=== PATIENT | female | born 1990 ===

== ENCOUNTER 2018-06-15 13:18 | Emergency (ER) | payer MEDICAID ==
[2018-06-15 13:31] VITALS: TEMP 98.8
[2018-06-15 15:02] LABS: HCG,QUALITATIVE URINE NEGATIVE (NEGATIVE)
[2018-06-15 15:26] LABS: SQUAMOUS EPITHIAL 5 /hpf (0-5); URINE BACTERIA MOD (<OCC); URINE BILIRUBIN NEGATIVE (NEGATIVE); URINE BLOOD NEGATIVE (NEGATIVE); URINE CLARITY Hazy (Clear); URINE COLOR Yellow (YELLOW); URINE GLUCOSE (UA) NORMAL (Normal); URINE LEUKOCYTE ESTERASE 1+ Leu/uL (Negative); URINE PROTEIN NEGATIVE (NEGATIVE); URINE UROBILINOGEN NORMAL mg/dL (0.2-1.0)
[2018-06-15 15:58] LABS: BASO # 0.1 K/uL (0.0-0.2); BASO % 0.4 % (0.0-2.0); EOS # 0.2 K/uL (0.0-0.7); EOS % 1.3 % (0.0-4.0); LYMPH # 2.9 K/uL (1.0-4.3); LYMPH % 25.2 % (20.0-40.0); MEAN CELL VOLUME 84.3 fL (81.0-99.0); MEAN CORPUSCULAR HEMOGLOBIN 28.2 pg (27.0-31.0); MEAN CORPUSCULAR HGB CONC 33.4 g/dL (33.0-37.0); MEAN PLATELET VOLUME 9.1 fL (7.2-11.7); MONO # 0.8 K/uL (0.0-0.8); MONO % 7.2 % (0.0-10.0); NEUT # 7.7 K/uL (1.8-7.0); NEUT % 65.9 % (50.0-75.0); RBC 4.98 Mil/uL (3.80-5.20); RED CELL DISTRIBUTION WIDTH 14.2 % (11.5-14.5); WHITE BLOOD COUNT 11.7 K/uL (4.8-10.8)
--- NOTE | 2018-06-15 16:05 | C.PDOC ---
History Of Present Illness <Tessy Barr - Last Filed: 06/15/18 18:22> <Monica Wilson - Last Filed: 06/15/18 18:33> Patient is a 28 year old female with past medical history of nephrolithiasis, asthma, ovarian cysts presents to the ED for lower abdominal pain that started 3 -4 days ago. Patient states that the pain has been progressively getting worse. Pain is worse in the RLQ and radiates to the back. Rates the pain 10/10 on the pain scale. Movement makes the pain worse, denies any alleviating factors. Did not take anything for the pain. Abdominal pain is associated with nausea, decreased appetite, and bloating. She admits to having some dysuria and subjective fever this morning. Denies headaches, dizziness, cp, palpitations, sob, changes in bowel habits. LMP was 05/24/18. Last ate bread and coffee this morning. (Tessy Barr) <Tessy Barr - Last Filed: 06/15/18 18:22> <Monica Wilson - Last Filed: 06/15/18 18:33> Time Seen by Provider: 06/15/18 15:05 Chief Complaint (Nursing): Abdominal Pain Past Medical History - Medical History PMH: Asthma, Kidney Stones, Chronic Kidney Disease Family History: States: Unknown Family Hx - Social History Hx Alcohol Use: No Hx Substance Use: No - Immunization History Hx Tetanus Toxoid Vaccination: No Hx Influenza Vaccination: No Hx Pneumococcal Vaccination: No <Tessy Barr - Last Filed: 06/15/18 18:22> Vital Signs: Last Vital Signs Temp 98.8 F 06/15/18 13:28 Pulse 75 06/15/18 13:28 Resp 18 06/15/18 13:28 BP 109/72 06/15/18 13:28 Pulse Ox 99 06/15/18 18:23 Review Of Systems Constitutional: Positive for: Fever, Chills Eyes: Negative for: Vision Change Cardiovascular: Negative for: Chest Pain, Palpitations, Edema Respiratory: Negative for: Cough, Shortness of Breath Gastrointestinal: Positive for: Nausea, Abdominal Pain. Negative for: Vomiting , Diarrhea, Constipation Genitourinary: Positive for: Dysuria, Pelvic Pain. Negative for: Hematuria, Vaginal Discharge, Vaginal Bleeding Skin: Negative for: Rash Neurological: Negative for: Numbness, Headache, Dizziness <Tessy Barr - Last Filed: 06/15/18 18:22> Physical Exam - Physical Exam Appears: Non-toxic, No Acute Distress Skin: Normal Color, Dry Head: Atraumatic, Normacephalic Eye(s): bilateral: Normal Inspection, PERRL Neck: Normal ROM Cardiovascular: Rhythm Regular Respiratory: Normal Breath Sounds, No Rales, No Rhonchi, No Wheezing Gastrointestinal/Abdominal: Soft, Tenderness, No Distention (RLQ tenderness and right sided pelvic tenderness), No Guarding, No Rebound Back: Normal Inspection, No CVA Tenderness Extremity: Normal ROM, No Calf Tenderness Extremity: Bilateral: Atraumatic Neurological/Psych: Oriented x3, Normal Speech <Tessy Barr - Last Filed: 06/15/18 18:22> ED Course And Treatment - Laboratory Results Result Diagrams: 06/15/18 15:52 06/15/18 15:52 O2 Sat by Pulse Oximetry: 99 <Tessy Barr - Last Filed: 06/15/18 18:22> - Laboratory Results Result Diagrams: 06/15/18 15:52 06/15/18 15:52 <Monica Wilson - Last Filed: 06/15/18 18:33> Disposition <Tessy Barr - Last Filed: 06/15/18 18:22> Counseled Patient/Family Regarding: Studies Performed, Diagnosis, Need For Followup, Rx Given - Disposition Disposition Time: 18:30 <Monica Wilson - Last Filed: 06/15/18 18:33> - Disposition Referrals: Elijah Ramos MD [Medical Doctor] - Disposition: HOME/ ROUTINE Condition: STABLE Additional Instructions: FOLLOW UP WITH YOUR DOCTOR IN 1-2 DAYS USE MEDICATIONS DIRECTED RETURN TO ER IF SYMPTOMS WORSEN Prescriptions: Ciprofloxacin [Cipro] 1 tab PO BID #14 tab Instructions: Urinary Tract Infection, Adult (DC) Forms: [employer] (Mauritian) Print Language: ESTONIAN - Clinical Impression Clinical Impression: UTI (urinary tract infection)
[2018-06-15 16:32] LABS: ALB/GLOB RATIO 1.4 (1.0-2.1); ALBUMIN 4.8 g/dL (3.5-5.0); ALT/SGPT 36 U/L (9-52); AST/SGOT 36 U/L (14-36); BLOOD UREA NITROGEN 18 mg/dL (7-17); CALCIUM 9.4 mg/dl (8.6-10.4); GFR AFRICAN-AMERICAN > 60; GFR NON-AFRICAN AMERICAN > 60; LIPASE 150 U/L (23-300)
--- NOTE | 2018-06-15 18:25 | US ---
Date of service: 06/15/2018 HISTORY: Abdominal Pain/Pelvic Pain COMPARISON: None available. TECHNIQUE: Grayscale, color Doppler and spectral evaluation the pelvis performed transabdominally. FINDINGS: UTERUS: Measures 6.9 x 2.9 x 4.3 cm. Anteverted. Normal in size and appearance. No fibroid or other mass lesion seen. ENDOMETRIUM: Measures 7 mm in diameter. Unremarkable. CERVIX: No cervical abnormality identified. RIGHT OVARY: Measures 3.2 x 2.6 x 2.8 cm. No solid mass. Normal flow. LEFT OVARY: Measures 2.7 x 2.6 x 2.5 cm. No solid mass. Normal flow. FREE FLUID: No significant free fluid noted. OTHER FINDINGS: None. IMPRESSION: Unremarkable pelvic ultrasound.
[2018-06-15 18:52] VITALS: BP 104/70; PULSE 69; RESP 20
[2018-06-15 18:53] VITALS: O2SAT 99
== END 2018-06-15 19:07 | disposition home or self-care (01) ==
LOC: C.ER 13:18
DX: N39.0 Urinary tract infection, site not specified (principal)
CPT/HCPCS: 76856; 80053; 81001; 83690; 84703; 85025; 87086; 87181; 96374; 96375; 99285; J1885; J2405

== ENCOUNTER 2018-11-19 13:46 | Emergency (ER) | payer MEDICAID ==
[2018-11-19 14:07] VITALS: TEMP 98.1
[2018-11-19] MEDS ORDERED: Sodium Chloride 0.9% 1,000 ML IV ONE (15:44)
--- NOTE | 2018-11-19 15:45 | C.PDOC ---
History Of Present Illness 28 y/o female with PMH of kidney stones and asthma presents to the ED c/o abdominal pain, productive cough, sinus congestion, and dysuria x 1 week. Cough is productive of yellow sputum and occasionally contains blood. Abdominal pain is sharp, intermittent, and right sided, radiates to right flank. Associated nausea, vomiting, and tactile fever. LMP 2 days ago. Not sexually active. Denies diarrhea, constipation, rash, SOB, numbness, weakness, paresthesias, headache, dizziness, vision changes, vaginal bleeding/odor, or any other associated symptoms. Chief Complaint (Nursing): Cough, Cold, Congestion Past Medical History Vital Signs: Last Vital Signs Temp 98.1 F 11/19/18 14:03 Pulse 87 11/19/18 14:03 Resp 18 11/19/18 14:03 BP 108/81 11/19/18 14:03 Pulse Ox 99 11/19/18 14:03 - Medical History PMH: Asthma, Kidney Stones, Chronic Kidney Disease Family History: States: Unknown Family Hx - Social History Hx Alcohol Use: No Hx Substance Use: No - Immunization History Hx Tetanus Toxoid Vaccination: No Hx Influenza Vaccination: No Hx Pneumococcal Vaccination: No Review Of Systems Except As Marked, All Systems Reviewed And Found Negative. Constitutional: Positive for: Fever (tactile) Eyes: Negative for: Vision Change ENT: Positive for: Nose Congestion, Throat Pain Cardiovascular: Negative for: Chest Pain, Palpitations, Light Headedness Respiratory: Positive for: Cough, Hemoptysis, Sputum. Negative for: Shortness of Breath Gastrointestinal: Positive for: Nausea, Vomiting, Abdominal Pain. Negative for: Diarrhea, Constipation, Rectal Pain Genitourinary: Negative for: Dysuria, Frequency, Incontinence, Hematuria, Vaginal Discharge, Vaginal Bleeding, Pelvic Pain Musculoskeletal: Negative for: Neck Pain, Back Pain Skin: Negative for: Rash Neurological: Negative for: Weakness, Numbness, Headache, Dizziness Physical Exam - Physical Exam Appears: Well, Non-toxic, No Acute Distress Skin: Normal Color, Warm, Dry Head: Atraumatic, Normacephalic, No Tenderness Eye(s): bilateral: Normal Inspection, PERRL, EOMI Ear(s): Bilateral: Normal Nose: Normal Oral Mucosa: Moist Tongue: Normal Appearing Lips: Normal Appearing Teeth: Normal Dentition Gingiva: Normal Appearing Throat: Normal, No Erythema, No Exudate Neck: Normal, Normal ROM, No Other (meningeal signs) Lymphatic: Normal Exam Chest: Symmetrical, No Deformity, No Tenderness Cardiovascular: Rhythm Regular Respiratory: Normal Breath Sounds, Wheezing (very mild intermittent expiratory) Gastrointestinal/Abdominal: Normal Exam, Bowel Sounds (normal), Soft, Tenderness (right sided), No Distention, No Guarding, No Rebound Back: Normal Inspection, CVA Tenderness (right) Extremity: Normal ROM Extremity: Bilateral: Atraumatic, No Pedal Edema, Normal Color And Temperature, Normal ROM Pulses: Left Radial: Normal, Right Radial: Normal Neurological/Psych: Oriented x3, Normal Speech, Normal Cognition, Normal Motor, Normal Sensation Gait: Steady ED Course And Treatment - Laboratory Results Result Diagrams: 11/19/18 15:47 11/19/18 15:47 Lab Interpretation: No Acute Changes Urine POC: Negative ECG: Viewed By Me ECG Rhythm: Sinus Rhythm ECG Interpretation: Normal Interpretation Of ECG: Rate 68; nsr; normal intervals; no stemi or t wave depessions Rate From EC O2 Sat by Pulse Oximetry: 99 Pulse Ox Interpretation: Normal - CT Scan/US CT- Abd & Pelv. Other Rad Studies (CT/US): Read By Radiologist CT/US Interpretation: FINDINGS: LOWER THORAX: No visible consolidation, pleural effusion, or pneumothorax. LIVER: Unremarkable. GALLBLADDER AND BILE DUCTS: Unremarkable. PANCREAS: Unremarkable. SPLEEN: Unremarkable. ADRENALS: Unremarkable. KIDNEYS AND URETERS: The kidneys enhance symmetrically. No hydronephrosis or obstructing calculus identified. VASCULATURE: No aortic aneurysm. No atherosclerotic calcification or mural plaque present. BOWEL: Stomach is nondistended. Lack of oral contrast limits evaluation for bowel pathology. Bowel loops appear within normal limits of caliber without evidence of obstruction. APPENDIX: The appendix appears within normal limits of caliber. No secondary signs of acute appendicitis. PERITONEUM: No significant free fluid. No definite free air. LYMPH NODES: No bulky adenopathy identified. BLADDER: Unremarkable. REPRODUCTIVE: Uterus is present. Bilateral adnexal pelvic masses appears cystic on the left and possibly hemorrhagic on the right. Recommend pelvic ultrasound for further characterization. BONES: No acute osseous abnormality is detected. OTHER FINDINGS: None. IMPRESSION: Bilateral adnexal pelvic masses appears cystic on the left and possibly hemorrhagic on the right. Recommend pelvic ultrasound for further characterization. Pelvic US Other Rad Studies (CT/US): Read By Radiologist, Radiology Report Reviewed CT/US Interpretation: History. Bilateral ovarian cysts, rule out torsion. Comparison. None available. Technique. TA. Findings. Uterus. Measures 7.8 x 3.4 x 5 cm. Normal in size and appearance. No fibroid or other mass lesion seen. Endometrium. Measures 6 mm in diameter. Unremarkable. Cervix. No cervical abnormality identified. Right ovary. Measures 4.5 x 3.6 x 3.8 cm. No solid mass. Normal flow. Complex cyst measures 2.5 x 3 x 2.7 cm. Left ovary. Measures 6.4 x 5 x 7 cm. No solid mass. Normal flow. Complex cyst measures 4.9 x 4.3 x 4.9 cm. Free fluid. Fluid is noted in the cul-de-sac. Other Findings. None. Impression. 1. Bilateral ovarian complex cysts. 2. Fluid is noted in the cul-de-sac. CXR Other Rad Studies (CT/US): Read By Radiologist CT/US Interpretation: FINDINGS: LUNGS: No focal consolidation. Please note that chest x-ray has limited sensitivity for the detection of pulmonary masses. PLEURA: No significant pleural effusion identified. No definite pneumothorax . CARDIOVASCULAR: Heart size appears within normal limits. No atherosclerotic calcification present. OSSEOUS STRUCTURES: No acute osseous abnormality identified. VISUALIZED UPPER ABDOMEN: Unremarkable. OTHER FINDINGS: None. IMPRESSION: No focal consolidation. Medical Decision Making Medical Decision Making: Initial Plan: * CBC, CMP * Lipase * Mg, Phos * Dimer * Rapid flu, strep, monospot * UA, culture * EKG * CXR * CT abd/pelvis Labs unremarkable; slightly elevated LFTs, recommend outpatient followup Rapid flu, strep, mono negative UA shows UTI CT shows bilateral ovarian cystic masses, will get TV US. No signs of pyelo. gall bladder disease, or appendicitis TV US shows bilateral ovarian cysts, will recommend [employer] followup outpatient. Patient feels much better after rest, fluids, and medications. Requesting food and discharge home. Diagnostic testing results and plan of care discussed with patient, and strict instructions given regarding prescriptions, importance of follow up, and signs to return to Emergency Department, to include worsening pain, fever, chills, vomiting, chest pain, or any other new/worsening symptoms. Patient verbalizes understanding of discussion. Patient A&Ox3, ambulating with steady gait, stable for discharge home. Disposition - Disposition [facility]errals: [facility] [Outside] Shelbi Barnes MD [Staff Provider] - Disposition: HOME/ ROUTINE Disposition Time: 20:45 Condition: IMPROVED Additional Instructions: Take antibiotic q12h for 10 days Increase fluids Followup with OBGYN within 2 days Followup with primary doctor within 2 days Return to ER for new/worsening symptoms Prescriptions: Albuterol Sulfate [Ventolin Hfa] 2 puff IH Q6H PRN #60 puff PRN Reason: Cough Cephalexin [Keflex] 500 mg PO BID 10 Days #20 capsule Instructions: Urinary Tract Infections in Adults, Upper Respiratory Infection (ED) Forms: General Discharge Instructions, [facility] (Tunisian), Work Excuse - Clinical Impression Clinical Impression: Ovarian cyst, UTI (urinary tract infection), Upper respiratory infection
[2018-11-19] MEDS ORDERED: Albuterol-Ipratrop 3 mg / 0.5 (3 ml) UD INH STA (15:46)
[2018-11-19 15:50] LABS: BASO % 0.5 % (0.0-2.0); EOS # 0.3 K/uL (0.0-0.7); EOS % 3.8 % (0.0-4.0); HEMOGLOBIN 14.7 g/dL (11.0-16.0); LYMPH # 1.9 K/uL (1.0-4.3); LYMPH % 21.5 % (20.0-40.0); MEAN CELL VOLUME 84.6 fL (81.0-99.0); MEAN CORPUSCULAR HEMOGLOBIN 28.2 pg (27.0-31.0); MEAN CORPUSCULAR HGB CONC 33.4 g/dL (33.0-37.0); MEAN PLATELET VOLUME 8.7 fL (7.2-11.7); MONO # 0.9 K/uL (0.0-0.8); MONO % 10.6 % (0.0-10.0); NEUT # 5.5 K/uL (1.8-7.0); NEUT % 63.6 % (50.0-75.0); RBC 5.22 Mil/uL (3.80-5.20); RED CELL DISTRIBUTION WIDTH 14.3 % (11.5-14.5); WHITE BLOOD COUNT 8.7 K/uL (4.8-10.8)
[2018-11-19] MEDS ORDERED: Sodium Chloride 0.9% 250 ML IV ONE (15:54)
--- NOTE | 2018-11-19 15:57 | RAD ---
HISTORY: cough COMPARISON: Chest x-ray performed 11/27/16 TECHNIQUE: Chest PA and lateral FINDINGS: LUNGS: No focal consolidation. Please note that chest x-ray has limited sensitivity for the detection of pulmonary masses. PLEURA: No significant pleural effusion identified. No definite pneumothorax . CARDIOVASCULAR: Heart size appears within normal limits. No atherosclerotic calcification present. OSSEOUS STRUCTURES: No acute osseous abnormality identified. VISUALIZED UPPER ABDOMEN: Unremarkable. OTHER FINDINGS: None. IMPRESSION: No focal consolidation.
[2018-11-19 15:59] LABS: SQUAMOUS EPITHIAL 5 /hpf (0-5); URINE BACTERIA MANY (<OCC); URINE BILIRUBIN NEGATIVE (NEGATIVE); URINE BLOOD 2+ (NEGATIVE); URINE CLARITY Hazy (Clear); URINE COLOR Amber (YELLOW); URINE GLUCOSE (UA) NORMAL (Normal); URINE LEUKOCYTE ESTERASE 1+ Leu/uL (Negative); URINE PROTEIN 1+ mg/dL (NEGATIVE)
[2018-11-19 16:01] LABS: INFLUENZA A B NEGATIVE FOR FLU A/B (NEGATIVE)
[2018-11-19 16:08] LABS: ALB/GLOB RATIO 1.4 (1.0-2.1); ALBUMIN 4.8 g/dL (3.5-5.0); BLOOD UREA NITROGEN 13 mg/dL (7-17); CALCIUM 9.1 mg/dl (8.6-10.4); GFR NON-AFRICAN AMERICAN > 60; LIPASE 105 U/L (23-300)
[2018-11-19 16:12] LABS: INR 1.2; PARTIAL THROMBOPLASTIN TIME 40 SECONDS (21-34); PROTHROMBIN TIME 13.1 SECONDS (9.7-12.2)
[2018-11-19 16:17] LABS: ALT/SGPT 84 U/L (9-52); AST/SGOT 73 U/L (14-36); D DIMER < 200 ng/mlDDU (0-243)
[2018-11-19] MEDS ORDERED: Iodixanol 320 mg/ml 150 ml Bottle IV ONE (16:50)
--- NOTE | 2018-11-19 17:50 | CT ---
Date of service: 11/19/2018 PROCEDURE: CT Abdomen and Pelvis with contrast HISTORY: RLQ pain, R flank pain COMPARISON: CT abdomen and pelvis performed 06/24/16, pelvic ultrasound performed 06/15/18 TECHNIQUE: Contrast dose: 100 mL Visipaque 320 IV Radiation dose: Total exam DLP = 327.08 mGy-cm. This CT exam was performed using one or more of the following dose reduction techniques: Automated exposure control, adjustment of the mA and/or kV according to patient size, and/or use of iterative reconstruction technique. FINDINGS: LOWER THORAX: No visible consolidation, pleural effusion, or pneumothorax. LIVER: Unremarkable. GALLBLADDER AND BILE DUCTS: Unremarkable. PANCREAS: Unremarkable. SPLEEN: Unremarkable. ADRENALS: Unremarkable. KIDNEYS AND URETERS: The kidneys enhance symmetrically. No hydronephrosis or obstructing calculus identified. VASCULATURE: No aortic aneurysm. No atherosclerotic calcification or mural plaque present. BOWEL: Stomach is nondistended. Lack of oral contrast limits evaluation for bowel pathology. Bowel loops appear within normal limits of caliber without evidence of obstruction. APPENDIX: The appendix appears within normal limits of caliber. No secondary signs of acute appendicitis. PERITONEUM: No significant free fluid. No definite free air. LYMPH NODES: No bulky adenopathy identified. BLADDER: Unremarkable. REPRODUCTIVE: Uterus is present. Bilateral adnexal pelvic masses appears cystic on the left and possibly hemorrhagic on the right. Recommend pelvic ultrasound for further characterization. BONES: No acute osseous abnormality is detected. OTHER FINDINGS: None. IMPRESSION: Bilateral adnexal pelvic masses appears cystic on the left and possibly hemorrhagic on the right. Recommend pelvic ultrasound for further characterization.
[2018-11-19] MEDS ORDERED: Sodium Chloride 0.9% 1,000 ML IV SCH (19:00)
[2018-11-19 21:07] VITALS: BP 110/70; PULSE 84; RESP 16
[2018-11-19 22:54] VITALS: O2SAT 99
--- NOTE | 2018-11-20 09:36 | US ---
Date of service: 11/19/2018 HISTORY: bilateral ovarian cysts, r/o torsion COMPARISON: None available. TECHNIQUE: Transabdominal pelvic ultrasound was performed. FINDINGS: UTERUS: Measures 7.8 x 3.4 x 5.0 cm. Normal in size and appearance. No fibroid or other mass lesion seen. ENDOMETRIUM: Measures 6.0 mm in diameter. Unremarkable. CERVIX: No cervical abnormality identified. RIGHT OVARY: Measures 4.5 x 3.6 x 3.8 cm. No solid mass. Normal flow. There is a 2.5 x 3.0 x 2.7 cm complicated/hemorrhagic cyst. LEFT OVARY: Measures 6.4 x 5.0 x 7.0 cm. No solid mass. Normal flow. There is a 4.9 x 4.3 x 4.9 cm complicated cyst/hemorrhagic cyst. FREE FLUID: There is small amount of free fluid in the pelvis which may be related to partial rupture of cysts or may be physiologic. OTHER FINDINGS: None. IMPRESSION: 2.5 x 3.0 x 2.7 cm complicated/hemorrhagic cyst in the right ovary and 4.9 x 4.3 x 4.9 cm complicated/hemorrhagic cyst in the left ovary. No evidence for torsion. Follow-up ultrasound in 3-6 month interval is recommended to assess stability/resolution. A preliminary report was provided by [email or web address].
== END 2018-11-19 21:07 | disposition home or self-care (01) ==
LOC: C.ER 13:46
DX: N39.0 Urinary tract infection, site not specified (principal); J06.9 Acute upper respiratory infection, unspecified; N83.201 Unspecified ovarian cyst, right side; N83.202 Unspecified ovarian cyst, left side
CPT/HCPCS: 36415; 71046; 74177; 76856; 80053; 81001; 83690; 83735; 84100; 85025; 85378; 85610; 85730; 86308; 87070; 87086; 87430; 87804; 96360; 96361; 99285; J7030; Q9967